=== PATIENT | male | born 1980 ===

== ENCOUNTER 2024-02-25 14:18 | Emergency (ER) | payer OTHER, SELFPAY ==
[2024-02-25 14:20] VITALS: PULSE 69; RESP 12; TEMP 36.6; O2SAT 100; BMI 23.6
[2024-02-25 14:28] VITALS: BP 168/90
--- NOTE | 2024-02-25 14:41 | ECG_ITS ---
[facility] Test Date: 2024-02-25 Pat Name: Mark Epperson Department: Room: Gender: Male [employer]: : 1980 Requested By: Erika Richardson Order Number: [id number] Pozo MD: Alber Linn M.D. Measurements Intervals [place] Rate: 76 P: 46 NC: 108 QRS: 52 QRSD: 94 T: 57 QT: 384 QTc: 433 Interpretive Statements SINUS RHYTHM WITH SHORT NC INTERVAL MINIMAL VOLTAGE CRITERIA FOR LVH, CONSIDER NORMAL VARIANT [MEETS CRITERIA IN ONE OF: R(aVL), S(V1), R(V5), R(V5/V6)+S(V1)] No previous ECG available for comparison Electronically Signed On 02-25-2024 21:06:13 CDT by Alber Linn M.D. [id number]
[2024-02-25 14:49] LABS: Basophils % 0.4 %; Eosinophils # 0.1 10^3/uL (0.0-0.8); Hematocrit 46.9 % (37-53); Lymphocytes # 1.8 10^3/uL (0.8-4.8); Mean Corpuscular HGB Conc 34.1 g/dL (30-55); Mean Corpuscular Hemoglobin 29.7 pg (27-33); Mean Corpuscular Volume 87.2 fl (82-101); Mean Platelet Volume 9.6 fL (7.4-10.4); Monocytes # 0.9 10^3/uL (0.2-0.9); Monocytes % 9.3 %; Neutrophils # 7.07 10^3/uL (1.8-7.7); Neutrophils % 70.9 %; Nucleated Red Blood Cells % 0 %; Platelet Count 321 10^3/cmm (157-399); Red Blood Count 5.38 10^6/uL (3.85-5.65); Red Cell Distribution Width 13.4 % (12.1-15.1); White Blood Count 9.97 10^3/uL (3.29-11.43)
--- NOTE | 2024-02-25 14:58 | ED_ITS ---
HPI - Overdose 2 General: Chief Complaint: Overdose Stated Complaint: rapid heart rate Time Seen by Provider: 02/25/24 14:37 Source: patient Mode of arrival: EMS Limitations: no limitations History of Present Illness: Patient is a 43-year-old male presents to ED today via EMS following a mushroom ingestion. Patient states he is not sure if he variety of mushroom ingested. He states he has ingested mushrooms previously. He is not forthcoming on where he got the mushrooms or how much he ingested. He states he did not take them in a suicide attempt. Patient states following ingestion he believes it triggered a panic attack as he got very anxious and started having chest pain thus prompting EMS. Upon arrival patient seems anxious and flushed. He is somewhat slow to respond to questioning but does answer all questions appropriately. He is alert and oriented. His vital signs are stable. His mother arrived shortly after his arrival. MD complaint: accidental overdose Onset (ago): hour(s) Context: Accidental Overdose: wanted to get high Associated symptoms: other (anxiety, chest pain) Treatments Prior to Arrival: none Review of Systems 2 Card: Reports: chest pain; Denies: palpitations, irregular heart rhythm, edema, swelling of feet/ankles, lightheadedness, syncope, pre-syncope, dyspnea on exertion, orthopnea, leg pain with exertion or acrocyanosis Resp: Denies: dyspnea GI: Denies: abdominal pain, nausea, vomiting or diarrhea Musc: Denies: neck pain, back pain, extremity pain or joint pain Skin/Breast: Denies: rash Neuro: Denies: headache(s), numbness in extremities, weakness in extremities or sensory changes Psych: Reports: anxiety Physical Exam 2 Const: COMMON NORMALS: average body habitus, patient oriented x3, healthy appearing, alert and well nourished GENERAL APPEARANCE: cooperative and anxious ORIENTATION/CONSCIOUSNESS: Yes awake, Yes oriented to person and Yes oriented to place (knows he is at [facility]) OTHER: can tell me name/ HENMT: COMMON NORMALS: normocephalic and atraumatic HEAD & SCALP: normal to inspection, normocephalic and atraumatic FACE & SINUS: other (facial flushing) MOUTH: Normal oral and palatal mucosa present and lip normal T HROAT: posterior oropharynx normal and tonsils normal Eye: COMMON NORMALS: Equal, round and reactive pupils present and EOMs intact bilaterally GENERAL EYE: appearance normal, both eyes and all related structures and decreased light reflex (sluggish pupils) PUPIL: Yes Equal, round and reactive pupils present DIRECT OPHTHALMOSCOPY: Yes decreased light reflex (sluggish pupils) Neck/C-Spine: COMMON NORMALS: no lymphadenopathy GENERAL: Yes normal visual inspection Resp: COMMON NORMALS: normal respiratory effort and clear to auscultation bilaterally AUSCULTATION: clear to auscultation bilaterally Cardio: COMMON NORMALS: regular rate and regular rhythm RATE: regular rate RHYTHM: regular rhythm GI: COMMON NORMALS: Normal to inspection, nondistended, normoactive bowel sounds present, Soft to palpation and non-tender PALPATION: Yes Soft to palpation Extremity: GENERAL: Yes normal exam except as noted Neuro: JACQUI COMA SCALE: document GCS findings Jacqui coma scale eye opening: Spontaneous [facility] coma scale verbal response: Orientated Jacqui coma scale motor response: Obey commands [facility] coma scale total score: 15 COMMON NORMALS: patient oriented x3, CN's II-XII intact bilaterally, moves all extremities, no focal motor deficits and no sensory deficits noted S ENSORIUM/ORIENTATION: Yes alert, Yes oriented to person and Yes oriented to place (knows he is at [facility]) Skin: COMMON NORMALS: no rashes or lesions noted GENERAL SKIN EXAM: no rashes or lesions noted Course 2 Vital Signs: Vital signs: Vital Signs Temperature 97.9 F 02/25/24 14:20 Pulse Rate 69 02/25/24 14:20 Respiratory Rate 12 02/25/24 14:20 Blood Pressure 168/90 02/25/24 14:28 Pulse Oximetry 100 02/25/24 14:20 Oxygen Delivery Me thod Room Air 02/25/24 14:20 MDM - Overdose Medical Decision Making Patient would like to go home at this time. He does not want to stay for cardiac workup in regards to his chest pain. We did discuss how most mushroom ingestions only require supportive care however there are some varieties that can cause delayed seizures, rhabdomyolysis, renal failure, liver toxicity, bradycardia/bronchospasm, etc. Patient this time is alert and oriented with ability to make informed decision making and would like to go home. Mother states she feels comfortable taking him home. Return to ED precautions given. He will sign out AMA. Medical Records I reviewed the patient's medical records. Lab Data I reviewed the patient's lab results. 02/25/24 14:24 02/25/24 14:24 Laboratory Results WBC 9.97 10^3/uL (3.29-11.43) 02/25/24 14: RBC 5.38 10^6/uL (3.85-5.65) 02/25/24 14:24 Hgb 16.00 g/dL (11.27-16.99) 02/25/24 14:24 Hct 46.9 % (37-53) 02/25/24 14:24 MCV 87.2 fl (82-101) 02/25/24 14:24 MCH 29.7 pg (27-33) 02/25/24 14: MCHC 34.1 g/dL (30-55) 02/25/24 14: RDW 13.4 % (12.1-15.1) 02/25/24 14:24 Plt Count 321 10^3/cmm (157-399) 02/25/24 14:24 MPV 9.6 fL (7.4-10.4) 02/25/24 14: Neut % (Auto) 70.9 % 02/25/24 14:24 Lymph % (Auto) 18.0 % 02/25/24 14: [place]gs % (Auto) 9.3 % 02/25/24 14: Eos % (Auto) 1.0 % 02/25/24 14: Baso % (Auto) 0.4 % 02/25/24 14: Neut # (Auto) 7.07 10^3/uL (1.8-7.7) 02/25/24 14: Lymph # (Auto) 1.8 10^3/uL (0.8-4.8) 02/25/24 14:24 [place]gs # (Auto) 0.9 10^3/uL (0.2-0.9) 02/25/24 14: Eos # (Auto) 0.1 10^3/uL (0.0-0.8) 02/25/24 14: Baso # (Auto) 0.0 10^3/uL (0.0-0.1) 02/25/24 14:24 Nucleated RBC % (auto) 0 % 02/25/24 14:24 Nucleated RBCs # 0.0 /100WBC 02/25/24 14:24 Potassium 3.6 mmol/L (3.5-5.1) 02/25/24 14:24 Chloride 98 mmol/L (98-107) 02/25/24 14:24 Anion Gap 18.6 (5-19) 02/25/24 14:24 BUN 18 mg/dL (6-20) 02/25/24 14:24 Creatinine 1.0 mg/dL (0.7-1.2) 02/25/24 14:24 Calcium 9.4 mg/dL (8.5-10.5) 02/25/24 14:24 Total Bilirubin 0.5 mg/dL (0.15-1.2) 02/25/24 14:24 AST 25 U/L (0-40) 02/25/24 14:24 ALT 25 U/L (0-41) 02/25/24 14:24 Alkaline Phosphatase 92 U/L (40-130) 02/25/24 14:24 Total Protein 7.5 g/dL (6.6-8.7) 02/25/24 14:24 Albumin 4.3 g/dL (3.5-5.2) 02/25/24 14:24 Globulin 3.2 g/dL (1.3-4.6) 02/25/24 14:24 No radiology studies performed this visit Discharge Plan Discharge Patient Disposition: Left Against Medical Advice Clinical Impression: Toxic effect of ingested mushroom Qualifiers: Encounter type: initial encounter Injury intent: accidental or unintentional Q ualified Code(s): T62.0X1A - Toxic effect of ingested mushrooms, accidental (unintentional), initial encounter Chest pain Qualifiers: Chest pain type: unspecified Qualified Code(s): R07.9 - Chest pain, unspecified Condition: Stable Coding Level of Care Code ED 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
[2024-02-25] MEDS: LORazepam 2 mg/mL INJ 10 mL MDV 1 MG IVP (15:01)
[2024-02-25 15:04] LABS: Alanine Aminotransferase 25 U/L (0-41); Albumin Level 4.3 g/dL (3.5-5.2); Alkaline Phosphatase 92 U/L (40-130); Anion Gap 18.6 (5-19); Aspartate Amino Transferase 25 U/L (0-40); Blood Urea Nitrogen 18 mg/dL (6-20); Calcium 9.4 mg/dL (8.5-10.5); Carbon Dioxide 21 mmol/L (22-29); Chloride 98 mmol/L (98-107); Creatinine Clr Calc Pharmacy 94.2743; Globulin 3.2 g/dL (1.3-4.6); Glomerular Filtration Rate 80.8 mL/min (90-130); Glucose 137 mg/dL (65-115); Osmolality Calculated 282 mOsm/kg (285-295); Potassium 3.6 mmol/L (3.5-5.1); Sodium 134 mmol/L (136-145); Total Bilirubin 0.5 mg/dL (0.15-1.2); Total Protein 7.5 g/dL (6.6-8.7)
[2024-02-25 15:13] VITALS: BP 168/90; PULSE 69; RESP 12; TEMP 36.6; O2SAT 100
[2024-02-25 15:18] LABS: Troponin(5th) Baseline 8 ng/L (0-15)
== END 2024-02-25 15:15 | disposition left against medical advice (07) ==
PROVIDERS: Emergency Provider Physician Assistant
DX: T62.0X1A Toxic effect of ingested mushrooms, accidental (unintentional), initial encounter (principal); R07.9 Chest pain, unspecified; Z53.29 Procedure and treatment not carried out because of patient's decision for other reasons
CPT/HCPCS: 80053; 84484; 85025; 93005; 96374; 99285; J2060